=== PATIENT | female | born 1960 | race Caucasian/White ===

== ENCOUNTER 2020-02-21 16:57 | Inpatient (IN) | payer OTHER ==
[~2020-02-21 16:57] MED LIST: HYDROmorphone 0.5 MG/0.5 ML SYRINGE IVP ONE; fentaNYL (PF) 50 MCG/ML 2 ML AMP IVP ONE
[2020-02-21] MEDS ORDERED: KETOROLAC 15 MG/ML 1 ML VIAL IVP STA (17:21)
[2020-02-21] MEDS ORDERED: SODIUM CHLORIDE 0.9% 1,000 ML IV STA (17:22)
--- NOTE | 2020-02-21 17:39 | ED ---
General Adult HPI <Keyon Chandra - Last Filed: 02/21/20 19:01> - General Source: patient Mode of arrival: ambulatory Limitations: no limitations <Rosas Bonilla - Last Filed: 02/21/20 19:03> - General Chief complaint: Abdominal Pain Stated complaint: Pelvic Pain Time Seen by Provider: 02/21/20 17:14 - History of Present Illness Initial comments: 59-year-old female with a past medical history of hysterectomy presents to the emergency room for chief quit of right lower quadrant abdominal pain. Patient reports this has been constant for 5 days now. Patient describes it as a sharp pain. Patient states it feels somewhat better when she lies flat. States walking makes this worse. Patient denies fevers but does admit to feeling sweaty at night. She denies nausea vomiting diarrhea. Denies dysuria.Patient has no other complaints at this time including shortness of breath, chest pain, nausea or vomiting, headache, or visual changes. (Rosas Bonilla) - Related Data Home Medications Medication Instructions Recorded Confirmed Multivitamins, Thera [Multivitamin 1 tab PO HS 02/21/20 02/21/20 (formulary)] Allergies Allergy/AdvReac Type Severity Reaction Status Date / Time No Known Allergies Allergy Verified 02/21/20 18:36 Review of Systems ROS Other: All systems not noted in ROS Statement are negative. <Keyon Chandra - Last Filed: 02/21/20 19:01> ROS Other: All systems not noted in ROS Statement are negative. <Rosas Bonilla - Last Filed: 02/21/20 19:03> ROS Statement: Those systems with pertinent positive or pertinent negative responses have been documented in the HPI. Past Medical History Past Medical History: No Reported History History of Any Multi-Drug Resistant Organisms: None Reported Past Surgical History: Hysterectomy Past Psychological History: No Psychological Hx Reported Smoking Status: Never smoker Past Alcohol Use History: Occasional Past Drug Use History: None Reported <Rosas Bonilla - Last Filed: 02/21/20 19:03> General Exam Limitations: no limitations General appearance: alert, in no apparent distress Head exam: Present: atraumatic, normocephalic, normal inspection Eye exam: Present: normal appearance ENT exam: Present: normal exam, mucous membranes moist Neck exam: Present: normal inspection, full ROM. Absent: tenderness, meningismus, lymphadenopathy Respiratory exam: Present: normal lung sounds bilaterally. Absent: respiratory distress, wheezes, rales, rhonchi, stridor Cardiovascular Exam: Present: regular rate, normal rhythm, normal heart sounds. Absent: systolic murmur, diastolic murmur, rubs, gallop, clicks GI/Abdominal exam: Present: soft, tenderness (Right lower quadrant tenderness), normal bowel sounds. Absent: distended, guarding, rebound, rigid <Rosas Bonilla - Last Filed: 02/21/20 19:03> Course Vital Signs 02/21/20 17:08 Temperature 98.5 F Pulse Rate 80 Respiratory 16 Rate Blood Pressure 144/78 O2 Sat by Pulse 98 Oximetry Medical Decision Making - Lab Data Result diagrams: 02/21/20 17:42 02/21/20 17:42 <Keyon Chandra - Last Filed: 02/21/20 19:01> - Lab Data Result diagrams: 02/21/20 17:42 02/21/20 17:42 <Rosas Bonilla - Last Filed: 02/21/20 19:03> - Medical Decision Making patient reevaluated and reexamined by myself, Dr. Chandra. Patient resting comfortably in bed. Abdomen soft with moderate tenderness right lower quadrant. I agree with PA findings. This includes diagnostic interpretation and treatment plan. CT results reviewed. Labs reviewed. Case discussed with Dr. Eden, who will admit For hospital call. He recommends nothing by mouth and IV antibiotics. (Keyon Chandra) Vitals are stable. Mild acidosis with a left shift. CMP unremarkable. Urinalysis is negative. CT abdomen and pelvis shows a 12 mm dilated appendix with surrounding mild inflammatory changes consistent with acute appendicitis. However there is also irregular wall thickening and mucosal enhancement of the cecum per which malignancy cannot be excluded. Appendicitis AB Conn current versus secondary to cecal finding. No evidence of perforation or significant fluid collection. Patient does not have history of surgeries. No current surge on. Dr. Chandra spoke with Dr. Eden who accepts this admission. (Rosas Bonilla) - Lab Data Lab Results 02/21/20 02/21/20 02/21/20 Range/Units 17:42 17:42 17:42 WBC 11.0 H (3.8-10.6) k/uL RBC 4.94 (3.80-5.40) m/uL Hgb 14.0 (11.4-16.0) gm/dL Hct 42.1 (34.0-46.0) % MCV 85.2 (80.0-100.0) fL MCH 28.4 (25.0-35.0) pg MCHC 33.3 (31.0-37.0) g/dL RDW 13.0 (11.5-15.5) % Plt Count 455 H (150-450) k/uL MPV 6.9 Neutrophils % 71 % Lymphocytes % 21 % Monocytes % 3 % Eosinophils % 2 % Basophils % 2 % Neutrophils # 7.8 H (1.3-7.7) k/uL Lymphocytes # 2.3 (1.0-4.8) k/uL Monocytes # 0.4 (0-1.0) k/uL Eosinophils # 0.2 (0-0.7) k/uL Basophils # 0.2 (0-0.2) k/uL Sodium 140 (137-145) mmol/L Potassium 5.0 (3.5-5.1) mmol/L Chloride 103 (98-107) mmol/L Carbon Dioxide 27 (22-30) mmol/L Anion Gap 10 mmol/L BUN 12 (7-17) mg/dL Creatinine 0.67 (0.52-1.04) mg/dL Est GFR (CKD-EPI)AfAm >90 (>60 ml/min/1.73 sqM) Est GFR (CKD-EPI)NonAf >90 (>60 ml/min/1.73 sqM) Glucose 90 (74-99) mg/dL Plasma Lactic Acid Isaac (0.7-2.0) mmol/L Calcium 9.9 (8.4-10.2) mg/dL Total Bilirubin 0.7 (0.2-1.3) mg/dL AST 52 H (14-36) U/L ALT 49 H (4-34) U/L Alkaline Phosphatase 104 (38-126) U/L Total Protein 7.8 (6.3-8.2) g/dL Albumin 4.4 (3.5-5.0) g/dL Amylase 61 (30-110) U/L Lipase 44 (23-300) U/L Urine Color Light Yellow Urine Appearance Clear (Clear) Urine pH 6.5 (5.0-8.0) Ur Specific Spencer 1.007 (1.001-1.035) Urine Protein Negative (Negative) Urine Glucose (UA) Negative (Negative) Urine Ketones Negative (Negative) Urine Blood Negative (Negative) Urine Nitrite Negative (Negative) Urine Bilirubin Negative (Negative) Urine Urobilinogen <2.0 (<2.0) mg/dL Ur Leukocyte Esterase Negative (Negative) 02/21/20 Range/Units 17:42 WBC (3.8-10.6) k/uL RBC (3.80-5.40) m/uL Hgb (11.4-16.0) gm/dL Hct (34.0-46.0) % MCV (80.0-100.0) fL MCH (25.0-35.0) pg MCHC (31.0-37.0) g/dL RDW (11.5-15.5) % Plt Count (150-450) k/uL MPV Neutrophils % % Lymphocytes % % Monocytes % % Eosinophils % % Basophils % % Neutrophils # (1.3-7.7) k/uL Lymphocytes # (1.0-4.8) k/uL Monocytes # (0-1.0) k/uL Eosinophils # (0-0.7) k/uL Basophils # (0-0.2) k/uL Sodium (137-145) mmol/L Potassium (3.5-5.1) mmol/L Chloride (98-107) mmol/L Carbon Dioxide (22-30) mmol/L Anion Gap mmol/L BUN (7-17) mg/dL Creatinine (0.52-1.04) mg/dL Est GFR (CKD-EPI)AfAm (>60 ml/min/1.73 sqM) Est GFR (CKD-EPI)NonAf (>60 ml/min/1.73 sqM) Glucose (74-99) mg/dL Plasma Lactic Acid Isaac 1.0 (0.7-2.0) mmol/L Calcium (8.4-10.2) mg/dL Total Bilirubin (0.2-1.3) mg/dL AST (14-36) U/L ALT (4-34) U/L Alkaline Phosphatase (38-126) U/L Total Protein (6.3-8.2) g/dL Albumin (3.5-5.0) g/dL Amylase (30-110) U/L Lipase (23-300) U/L Urine Color Urine Appearance (Clear) Urine pH (5.0-8.0) Ur Specific Spencer (1.001-1.035) Urine Protein (Negative) Urine Glucose (UA) (Negative) Urine Ketones (Negative) Urine Blood (Negative) Urine Nitrite (Negative) Urine Bilirubin (Negative) Urine Urobilinogen (<2.0) mg/dL Ur Leukocyte Esterase (Negative) Disposition <Keyon Chandra - Last Filed: 02/21/20 19:01> Is patient prescribed a controlled substance at d/c from ED?: No Time of Disposition: 18:57 <Rosas Bonilla - Last Filed: 02/21/20 19:03> Clinical Impression: Appendicitis Disposition: ADMITTED IP TO THIS HOSP Referrals: None,Stated [Primary Care Provider] - 1-2 days
[2020-02-21 18:01] LABS: Appearance,Urine Clear (Clear); Basophils # (A) 0.2 k/uL (0-0.2); Basophils % (A) 2 %; Bilirubin,Urine Negative (Negative); Blood,Urine Negative (Negative); Color,Urine Light Yellow; Eosinophils # (A) 0.2 k/uL (0-0.7); Eosinophils % (A) 2 %; Glucose,Urine (UA) Negative (Negative); HCT 42.1 % (34.0-46.0); Ketones,Urine Negative (Negative); Leukocyte Esterase,Urine Negative (Negative); Lymphocytes # (A) 2.3 k/uL (1.0-4.8); Lymphocytes % (A) 21 %; MCH 28.4 pg (25.0-35.0); MCHC 33.3 g/dL (31.0-37.0); MCV 85.2 fL (80.0-100.0); Mean Platelet Volume 6.9; Monocytes # (A) 0.4 k/uL (0-1.0); Monocytes % (A) 3 %; Neutrophils # (A) 7.8 k/uL (1.3-7.7); Neutrophils % (A) 71 %; Nitrite,Urine Negative (Negative); PH, Urine 6.5 (5.0-8.0); Platelet Count 455 k/uL (150-450); Protein,Urine Negative (Negative); RBC 4.94 m/uL (3.80-5.40); Specific Gravity,Urine 1.007 (1.001-1.035); Urobilinogen,Urine <2.0 mg/dL (<2.0)
[2020-02-21 18:14] LABS: ALT 49 U/L (4-34); AST 52 U/L (14-36); African American GFR (CKD) >90 (>60 ml/min/1.73 sqM); Albumin 4.4 g/dL (3.5-5.0); Alkaline Phosphatase 104 U/L (38-126); Amylase 61 U/L (30-110); Anion Gap 10 mmol/L; Blood Urea Nitrogen 12 mg/dL (7-17); Calcium 9.9 mg/dL (8.4-10.2); Carbon Dioxide 27 mmol/L (22-30); Chloride 103 mmol/L (98-107); Glucose 90 mg/dL (74-99); Lipase 44 U/L (23-300); Non-African American GFR(CKD) >90 (>60 ml/min/1.73 sqM); Sodium 140 mmol/L (137-145); Total Bilirubin 0.7 mg/dL (0.2-1.3); Total Protein 7.8 g/dL (6.3-8.2)
--- NOTE | 2020-02-21 18:39 | CT ---
EXAMINATION TYPE: CT abdomen pelvis w con DATE OF EXAM: 02/21/2020 COMPARISON: None available. HISTORY: RLQ pain with constipation and fever. CT DLP: 1472.7 mGycm Automated exposure control for dose reduction was used. TECHNIQUE: Helical acquisition of images was performed from the lung bases through the pelvis. CONTRAST: Performed without Oral Contrast and with IV Contrast, patient injected with 100 mL of Isovue 300. FINDINGS: LUNG BASES: No significant abnormality is appreciated. LIVER/GB: No significant abnormality is appreciated. PANCREAS: No significant abnormality is seen. SPLEEN: No significant abnormality is seen. ADRENALS: No significant abnormality is seen. KIDNEYS: No significant abnormality is seen. FREE AIR: No free air is visualized. RETROPERITONEAL ADENOPATHY: None visualized REPRODUCTIVE ORGANS: No significant abnormality is seen URINARY BLADDER: Decompressed, otherwise unremarkable. PELVIC ADENOPATHY: None visualized. OSSEOUS STRUCTURES: No significant abnormality is seen. BOWEL: 12 mm dilated appendix with surrounding mild fat stranding. Also diffuse irregular wall thick ening and mucosal enhancement of the cecum. No significant fluid collection or free air. No bowel obs truction OTHER: None. IMPRESSION: 12 mm dilated appendix with surrounding mild inflammatory changes, consistent with acute appendicitis . However there is also irregular wall thickening and mucosal enhancement of the cecum, for which mal ignancy cannot be excluded. Appendicitis may be concurrent versus secondary to cecal finding. No evidence of perforation or significant fluid collection. Findings were reported to CAMERON Bonilla by me at the time of dictation.
[2020-02-21] MEDS ORDERED: NALOXONE 0.4 MG/ML 1 ML VIAL IV PRN ×2 (19:02→22:57)
[2020-02-21] MEDS ORDERED: HYDROmorphone 0.5 MG/0.5 ML SYRINGE IVP PRN (19:02)
[2020-02-21] MEDS ORDERED: ONDANSETRON 4 MG/2 ML VIAL IVP PRN ×2 (19:02→22:57)
[2020-02-21] MEDS ORDERED: AMPICILLIN-SULBACTAM 1.5 GM in SODIUM CHLORIDE 0.9% 50 ML IVPB ONE (19:20)
[2020-02-21] MEDS ORDERED: LACTATED RINGERS 1,000 ML IV ONE ×2 (21:09→22:57)
[2020-02-21] MEDS ORDERED: NEOSTIGMINE 1 MG/ML 10 ML VIAL ONE (21:43)
[2020-02-21] MEDS ORDERED: LIDOCAINE 1% INJ 10MG/ML (20 ML MDV) ONE (21:43)
[2020-02-21] MEDS ORDERED: fentaNYL (PF) 50 MCG/ML 2 ML AMP ONE (21:43)
[2020-02-21] MEDS ORDERED: GLYCOPYRROLATE 0.2 MG/ML 2 ML VIAL ONE (21:43)
[2020-02-21] MEDS ORDERED: SUCCINYLCHOLINE CHLORIDE 100 MG/5 ML SYR IV ONE (21:43)
[2020-02-21] MEDS ORDERED: PROPOFOL 10 MG/ML 20 ML VIAL IV ONE (21:43)
[2020-02-21] MEDS ORDERED: MIDAZOLAM 2 MG/2 ML VIAL ONE (21:43)
[2020-02-21] MEDS ORDERED: HYDROmorphone (PF) 1 MG/ML ONE (21:43)
[2020-02-21] MEDS ORDERED: ROCURONIUM 10 MG/ML (10 ML VIAL) IV ONE (21:43)
[2020-02-21] MEDS ORDERED: ONDANSETRON 4 MG/2 ML VIAL ONE (21:43)
[2020-02-21] MEDS ORDERED: BUPIVACAINE (PF) 0.25% 30 ML VIAL SQ ONE (21:45)
--- NOTE | 2020-02-21 21:47 | P.GSHP ---
History of Present Illness H&P Date: 02/21/20 Chief Complaint: Right lower quadrant pain This is a 59-year-old female who presents emergency room with a 5 day history of right lower quadrant pain. Patient went CAT scan which shows evidence of acute appendicitis. Past Medical History Past Medical History: No Reported History History of Any Multi-Drug Resistant Organisms: None Reported Past Surgical History: Hysterectomy Past Psychological History: No Psychological Hx Reported Smoking Status: Never smoker Past Alcohol Use History: Occasional Past Drug Use History: None Reported Medications and Allergies Home Medications Medication Instructions Recorded Confirmed Type Multivitamins, Thera [Multivitamin 1 tab PO HS 02/21/20 02/21/20 History (formulary)] Allergies Allergy/AdvReac Type Severity Reaction Status Date / Time No Known Allergies Allergy Verified 02/21/20 18:36 Surgical - Exam Vital Signs Temp Pulse Resp BP Pulse Ox 98.5 F 80 16 144/78 98 02/21/20 17:08 02/21/20 17:08 02/21/20 17:08 02/21/20 17:08 02/21/20 17:08 - General well developed, well nourished, no distress - Eyes PERRL - ENT normal pinna - Neck no masses - Respiratory normal expansion - Cardiovascular Rhythm: regular - Abdomen Right lower quadrant pain Abdomen: soft Results - Labs 02/21/20 17:42 02/21/20 17:42 Abnormal Lab Results - Last 24 Hours (Table) 02/21/20 02/21/20 Range/Units 17:42 17:42 WBC 11.0 H (3.8-10.6) k/uL Plt Count 455 H (150-450) k/uL Neutrophils # 7.8 H (1.3-7.7) k/uL AST 52 H (14-36) U/L ALT 49 H (4-34) U/L Diabetes panel 02/21/20 Range/Units 17:42 Sodium 140 (137-145) mmol/L Potassium 5.0 (3.5-5.1) mmol/L Chloride 103 (98-107) mmol/L Carbon Dioxide 27 (22-30) mmol/L BUN 12 (7-17) mg/dL Creatinine 0.67 (0.52-1.04) mg/dL Glucose 90 (74-99) mg/dL Calcium 9.9 (8.4-10.2) mg/dL AST 52 H (14-36) U/L ALT 49 H (4-34) U/L Alkaline Phosphatase 104 (38-126) U/L Total Protein 7.8 (6.3-8.2) g/dL Albumin 4.4 (3.5-5.0) g/dL Calcium panel 02/21/20 Range/Units 17:42 Calcium 9.9 (8.4-10.2) mg/dL Albumin 4.4 (3.5-5.0) g/dL Pituitary panel 02/21/20 Range/Units 17:42 Sodium 140 (137-145) mmol/L Potassium 5.0 (3.5-5.1) mmol/L Chloride 103 (98-107) mmol/L Carbon Dioxide 27 (22-30) mmol/L BUN 12 (7-17) mg/dL Creatinine 0.67 (0.52-1.04) mg/dL Glucose 90 (74-99) mg/dL Calcium 9.9 (8.4-10.2) mg/dL Adrenal panel 02/21/20 Range/Units 17:42 Sodium 140 (137-145) mmol/L Potassium 5.0 (3.5-5.1) mmol/L Chloride 103 (98-107) mmol/L Carbon Dioxide 27 (22-30) mmol/L BUN 12 (7-17) mg/dL Creatinine 0.67 (0.52-1.04) mg/dL Glucose 90 (74-99) mg/dL Calcium 9.9 (8.4-10.2) mg/dL Total Bilirubin 0.7 (0.2-1.3) mg/dL AST 52 H (14-36) U/L ALT 49 H (4-34) U/L Alkaline Phosphatase 104 (38-126) U/L Total Protein 7.8 (6.3-8.2) g/dL Albumin 4.4 (3.5-5.0) g/dL Assessment and Plan Plan: Acute appendicitis. Patient undergo laparoscopic appendectomy
[2020-02-21] MEDS ORDERED: METOCLOPRAMIDE 5 MG/ML 2 ML VIAL IVP PRN (22:57)
[2020-02-21] MEDS ORDERED: ONDANSETRON 4 MG/2 ML VIAL IVP ONE (23:10)
[2020-02-21] MEDS ORDERED: HYDROmorphone 0.5 MG/0.5 ML SYRINGE IVP ONE ×5 (23:12→23:50)
[2020-02-21] MEDS ORDERED: SODIUM CHLORIDE 0.9% 1,000 ML IV ONE (23:38)
[2020-02-22] MEDS ORDERED: fentaNYL (PF) 50 MCG/ML 2 ML AMP IVP ONE (00:05)
[2020-02-22] MEDS ORDERED: KETOROLAC 15 MG/ML 1 ML VIAL IVP ONE ×3 (00:30→01:17)
[2020-02-22] MEDS: HYDROmorphone 1 MG/ML 1 ML SYRINGE IVP PRN ×4 (01:59→20:56)
[2020-02-22] MEDS: SODIUM CHLORIDE 0.9% 1,000 ML IV SCH ×4 (02:00→15:34)
[2020-02-22] MEDS: AMPICILLIN-SULBACTAM 1.5 GM in SODIUM CHLORIDE 0.9% 50 ML IVPB SCH ×4 (02:12→18:09)
[2020-02-22 06:54] LABS: Basophils % (A) 0 %; Eosinophils % (A) 0 %; HCT 35.8 % (34.0-46.0); HGB 11.4 gm/dL (11.4-16.0); Lymphocytes # (A) 0.9 k/uL (1.0-4.8); Lymphocytes % (A) 9 %; MCH 27.8 pg (25.0-35.0); MCHC 31.8 g/dL (31.0-37.0); MCV 87.3 fL (80.0-100.0); Mean Platelet Volume 6.5; Monocytes # (A) 0.3 k/uL (0-1.0); Monocytes % (A) 3 %; Neutrophils # (A) 8.3 k/uL (1.3-7.7); Neutrophils % (A) 87 %; Platelet Count 343 k/uL (150-450); RBC 4.11 m/uL (3.80-5.40); RDW 13.2 % (11.5-15.5); WBC 9.5 k/uL (3.8-10.6)
[2020-02-22 07:01] LABS: African American GFR (CKD) >90 (>60 ml/min/1.73 sqM); Albumin 3.3 g/dL (3.5-5.0); Anion Gap 4 mmol/L; Calcium 8.5 mg/dL (8.4-10.2); Carbon Dioxide 28 mmol/L (22-30); Chloride 106 mmol/L (98-107); Glucose 129 mg/dL (74-99); Non-African American GFR(CKD) >90 (>60 ml/min/1.73 sqM); Sodium 138 mmol/L (137-145); Total Bilirubin 0.6 mg/dL (0.2-1.3); Total Protein 6.2 g/dL (6.3-8.2)
[2020-02-22 07:04] LABS: ALT 44 U/L (4-34); AST 43 U/L (14-36); Alkaline Phosphatase 67 U/L (38-126); Blood Urea Nitrogen 11 mg/dL (7-17); Potassium 5.1 mmol/L (3.5-5.1)
--- NOTE | 2020-02-22 08:48 | P.OP ---
Date of Procedure: 02/21/20 Preoperative Diagnosis: Acute appendicitis Postoperative Diagnosis: Right colon mass Procedure(s) Performed: Diagnostic laparoscopy Right colectomy Anesthesia: YAHIR Surgeon: Adolfo Eden Estimated Blood Loss (ml): 5 Pathology: none sent Condition: stable Disposition: PACU Description of Procedure: HThe patient's placed on the operating table in the supine position. The patient received general anesthesia. The abdomen was prepped and draped in the usual sterile fashion. The skin was anesthetized 1% local Xylocaine at the trocar sites. Using an 11 blade the skin was incised at the umbilicus. The umbilicus was grasped with a Marcelle clamp and then a Veress needle was placed into the peritoneal cavity. Position of the Veress needle was confirmed with positive drop test. After adequate insufflation a 5 mm trocar was placed into the peritoneal cavity. The abdomen was further insufflated. And then the laparoscope was placed in the peritoneal cavity. Next a 5 mm trocar was placed in the midline suprapubic position. And then a 10 mm trocar was placed in the midline epigastric position. The patient was rotated with the right side up and in Trendelenburg. The patient appeared to have a mass at the cecum. The small bowel was adherent to the mass. It was unclear if this was due to appendicitis or a tumor. This point the procedure was converted to an open procedure. The trochars withdrawn. The skin was incised in the midline. And was entered. The Bookwalter tract with wound. The patient had a mass in the cecum and small bowel. The terminal ileum was then transected with the OSMANY stapler. And the mesentery the terminal ileum was divided with the Enseal device. The right colon was mobilized by dividing the white line of Toldt and the colon was mobilized medially. The distal ascending colon was transected with the OSMANY stapler. And then the mesentery the bowel was divided with the incidental device. The specimen sent to pathology. The bowel was then anastomosed using the OSMANY and TA stapler in a [id number] functional end-to-end staple anastomosis. A 3-0 GI silk sutures using a crotch stitch. The abdomen was areas no bleeding seen. The fascia was closed with looped #1 PDS suture. Skin was closed dameon. Patient top she will was sent to recovery room stable condition.
[2020-02-22] MEDS ORDERED: ENOXAPARIN 40 MG/0.4 ML SYRINGE SQ SCH (09:00)
[2020-02-22] MEDS: HEPARIN SODIUM,PORCINE 5,000 UNIT/ML 1 ML VIAL SQ SCH ×2 (09:50→20:54)
[2020-02-22] MEDS: ACETAMINOPHEN IV (For NPO) 1,000 MG in EMPTY BAG 1 BAG IVPB SCH ×3 (10:47→20:54)
--- NOTE | 2020-02-22 12:44 | P.PN ---
Subjective Progress Note Date: 02/22/20 CHIEF COMPLAINT: Abdominal pain HISTORY OF PRESENT ILLNESS: Patient is postop day #1 status post diagnostic laparoscopy and right colectomy for right colon mass. Patient is reporting abdominal pain. She rates her pain 8 out of 10. She reports that her pain medication is not lasting long enough. She denies any nausea or vomiting. She denies passing gas. WBC is 9.5 hemoglobin 11.4 PHYSICAL EXAM: VITAL SIGNS: Reviewed. GENERAL: Well-developed in no acute distress. HEENT: No sclera icterus. Extraocular movements grossly intact. Moist buccal mucosa. Head is atraumatic, normocephalic. ABDOMEN: Soft. Nondistended. Incisional tenderness. Incision dressing small amounts of blood noted. NEUROLOGIC: Alert and oriented. Cranial nerves II through XII grossly intact. ASSESSMENT: 1. Right colon mass status post diagnostic laparoscopy and right colectomy PLAN: -Keep patient nothing by mouth -Increased IV fluids 125 mL per hour normal saline -IV Tylenol and IV Toradol added to help with pain control. Continue with the Dilaudid as needed -Continue IV Unasyn -Await pathology results -Encourage incentive spirometer use -Encourage patient to ambulate -GI prophylaxis Protonix and DVT prophylaxis subcu heparin Physician Courtroom Deputy note has been reviewed by physician. Signing provider agrees with the documented findings, assessment, and plan of care. Objective - Vital Signs Vital signs: Vital Signs Temp 97.5 F L 02/22/20 04:34 Pulse 86 02/22/20 04:34 Resp 18 02/22/20 04:34 BP 134/81 02/22/20 04:34 Pulse Ox 97 02/22/20 04:34 Intake & Output 02/21/20 02/22/20 02/22/20 18:59 06:59 18:59 Intake Total 800 1660 Output Total 120 Balance 800 1540 Weight 90.718 kg 90.718 kg Intake: IV 800 200 Intake, IV Titration 1060 Amount Ampicillin-Sulbactam 1.5 100 gm In Sodium Chloride 0.9 % 50 ml @ 100 mls/hr IVPB Q6HR [facility] Rx#:[id number] Sodium Chloride 0.9% 1, 960 000 ml @ 120 mls/hr IV . Q8H20M [facility] Rx#:[id number] Oral 400 Output: Urine 70 Estimated Blood Loss 50 Other: Voiding Method Indwelling Catheter Indwelling Catheter - Labs CBC & Chem 7: 02/22/20 06:41 02/22/20 06:41 Labs: Abnormal Lab Results - Last 24 Hours (Table) 02/21/20 02/21/20 02/22/20 Range/Units 17:42 17:42 06:41 WBC 11.0 H (3.8-10.6) k/uL Plt Count 455 H (150-450) k/uL Neutrophils # 7.8 H 8.3 H (1.3-7.7) k/uL Lymphocytes # 0.9 L (1.0-4.8) k/uL Glucose (74-99) mg/dL AST 52 H (14-36) U/L ALT 49 H (4-34) U/L Total Protein (6.3-8.2) g/dL Albumin (3.5-5.0) g/dL 02/22/20 Range/Units 06:41 WBC (3.8-10.6) k/uL Plt Count (150-450) k/uL Neutrophils # (1.3-7.7) k/uL Lymphocytes # (1.0-4.8) k/uL Glucose 129 H (74-99) mg/dL AST 43 H (14-36) U/L ALT 44 H (4-34) U/L Total Protein 6.2 L (6.3-8.2) g/dL Albumin 3.3 L (3.5-5.0) g/dL
[2020-02-22] MEDS: KETOROLAC 15 MG/ML 1 ML VIAL IVP SCH ×2 (13:18→17:54)
[2020-02-22] MEDS: PANTOPRAZOLE 40 MG/10 ML VIAL IVP SCH (13:19)
--- NOTE | 2020-02-22 13:41 | P.CONS ---
History of Present Illness - Reason for Consult Appendicitis - History of Present Illness Pleasant 59-year-old the female came in with right lower quadrant abdominal pain initially believed to have appendicitis because of which she initially laparoscopy was attempted and patient is found to have masslike lesion which is inflamed which appeared to be chronically inflamed around the cecal area because of which it was subsequently converted to laparotomy and the patient had a laparotomy with the removal of the appendix and cecum, patient had the colectomy as well partial. Patient was really doesn't have a colostomy at this time. Patient is still having some pain. Patient denied any fever chills nausea vomiting patient is passing gas. Review of Systems REVIEW OF SYSTEMS: CONSTITUTIONAL: No fever, no malaise, no fatigue. HEENT: No recent visual problems or hearing problems. Denied any sore throat. CARDIOVASCULAR: No chest pain, orthopnea, PND, no palpitations, no syncope. PULMONARY: No shortness of breath, no cough, no hemoptysis. GASTROINTESTINAL: As mentioned in HPI NEUROLOGICAL: No headaches, no weakness, no numbness. HEMATOLOGICAL: Denies any bleeding or petechiae. GENITOURINARY: Denies any burning micturition, frequency, or urgency. MUSCULOSKELETAL/RHEUMATOLOGICAL: Denies any joint pain, swelling, or any muscle pain. ENDOCRINE: Denies any polyuria or polydipsia. The rest of the 14-point review of systems is negative. Past Medical History Past Medical History: No Reported History History of Any Multi-Drug Resistant Organisms: None Reported Past Surgical History: Hysterectomy Past Anesthesia/Blood Transfusion Reactions: No Reported Reaction Past Psychological History: No Psychological Hx Reported Smoking Status: Never smoker Past Alcohol Use History: Occasional Past Drug Use History: None Reported - Past Family History Father Family Medical History: Prostate Disorder Additional Family Medical History / Comment(s): preastrate ca Mother Family Medical History: Hypertension Medications and Allergies Home Medications Medication Instructions Recorded Confirmed Type Multivitamins, Thera [Multivitamin 1 tab PO HS 02/21/20 02/21/20 History (formulary)] Allergies Allergy/AdvReac Type Severity Reaction Status Date / Time No Known Allergies Allergy Verified 02/21/20 18:36 Physical Exam Vitals: Vital Signs Temp Pulse Pulse Pulse Resp BP BP 02/22/20 04:34 97.5 F L 86 18 134/81 02/22/20 01:30 97.6 F 75 16 143/75 11/18/20 01:00 70 18 132/66 02/22/20 00:25 68 16 139/67 02/22/20 00:10 64 16 135/66 02/21/20 23:50 60 16 130/73 02/21/20 23:35 62 16 130/73 02/21/20 23:20 64 16 133/69 02/21/20 23:08 58 L 16 118/60 02/21/20 22:53 96.8 F L 63 16 141/76 02/21/20 21:04 77 16 158/75 02/21/20 19:13 99.2 F 76 16 153/90 02/21/20 17:08 98.5 F 80 16 144/78 Pulse Ox 02/22/20 04:34 97 02/22/20 01:30 97 02/22/20 01:00 96 02/22/20 00:25 98 02/22/20 00:10 96 02/21/20 23:50 96 02/21/20 23:35 99 02/21/20 23:20 95 02/21/20 23:08 98 02/21/20 22:53 97 02/21/20 21:04 97 02/21/20 19:13 100 02/21/20 17:08 98 Intake and Output 02/21/20 02/22/20 02/22/20 22:59 06:59 14:59 Intake Total 1660 Output Total 120 Balance -120 1660 Intake: IV 200 Intake, IV Titration 1060 Amount Ampicillin-Sulbactam 1.5 100 gm In Sodium Chloride 0.9 % 50 ml @ 100 mls/hr IVPB Q6HR [facility] Rx#:[id number] Sodium Chloride 0.9% 1, 960 000 ml @ 120 mls/hr IV . Q8H20[facility] Rx#:[id number] Oral 400 Output: Urine 70 Estimated Blood Loss 50 Other: Voiding Method Indwelling Catheter Indwelling Catheter Weight 90.718 kg 90.718 kg PHYSICAL EXAMINATION: GENERAL: The patient is alert and oriented x3, not in any acute distress. Well developed, well nourished. HEENT: Pupils are round and equally reacting to light. EOMI. No scleral icterus. No conjunctival pallor. Normocephalic, atraumatic. No pharyngeal erythema. No thyromegaly. CARDIOVASCULAR: S1 and S2 present. No murmurs, rubs, or gallops. PULMONARY: Chest is clear to auscultation, no wheezing or crackles. ABDOMEN: Soft, surgical site areas are clean. MUSCULOSKELETAL: No joint swelling or deformity. EXTREMITIES: No cyanosis, clubbing, or pedal edema. NEUROLOGICAL: Gross neurological examination did not reveal any focal deficits. SKIN: No rashes. Results CBC & Chem 7: 02/22/20 06:41 02/22/20 06:41 Labs: Abnormal Lab Results - Last 24 Hours (Table) 02/21/20 02/21/20 02/22/20 Range/Units 17:42 17:42 06:41 WBC 11.0 H (3.8-10.6) k/uL Plt Count 455 H (150-450) k/uL Neutrophils # 7.8 H 8.3 H (1.3-7.7) k/uL Lymphocytes # 0.9 L (1.0-4.8) k/uL Glucose (74-99) mg/dL AST 52 H (14-36) U/L ALT 49 H (4-34) U/L Total Protein (6.3-8.2) g/dL Albumin (3.5-5.0) g/dL 02/22/20 Range/Units 06:41 WBC (3.8-10.6) k/uL Plt Count (150-450) k/uL Neutrophils # (1.3-7.7) k/uL Lymphocytes # (1.0-4.8) k/uL Glucose 129 H (74-99) mg/dL AST 43 H (14-36) U/L ALT 44 H (4-34) U/L Total Protein 6.2 L (6.3-8.2) g/dL Albumin 3.3 L (3.5-5.0) g/dL Assessment and Plan Plan: -Cecal mass with possible acute or chronic inflammation: Patient is status post surgery and patient is status post colectomy and appendectomy. Pain management as per primary service. Patient is on due to prophylaxis with subcutaneous heparin patient is presently on Zosyn. -leukocytosis due to assessment #1 Abdomen mildly elevated liver enzymes mild nonspecific elevation of further intervention is necessary at this time.
[2020-02-23] MEDS: AMPICILLIN-SULBACTAM 1.5 GM in SODIUM CHLORIDE 0.9% 50 ML IVPB SCH ×5 (01:11→23:33)
[2020-02-23] MEDS: KETOROLAC 15 MG/ML 1 ML VIAL IVP SCH ×5 (01:11→23:33)
[2020-02-23] MEDS: SODIUM CHLORIDE 0.9% 1,000 ML IV SCH ×3 (01:12→21:11)
[2020-02-23] MEDS: HYDROmorphone 1 MG/ML 1 ML SYRINGE IVP PRN ×2 (04:59→21:05)
[2020-02-23] MEDS: ACETAMINOPHEN IV (For NPO) 1,000 MG in EMPTY BAG 1 BAG IVPB SCH (04:59)
[2020-02-23 05:39] VITALS: RESP 16
[2020-02-23] MEDS: PANTOPRAZOLE 40 MG/10 ML VIAL IVP SCH (08:14)
[2020-02-23] MEDS: HEPARIN SODIUM,PORCINE 5,000 UNIT/ML 1 ML VIAL SQ SCH ×2 (08:15→21:08)
[2020-02-23 09:44] LABS: African American GFR (CKD) 114.8 (60.0-200.0); Anion Gap 11.1 mmol/L (4.00-12.00); BUN/Creat Ratio 16.67 Ratio (12.00-20.00); Calcium 8.5 mg/dL (8.7-10.3); Carbon Dioxide 19.9 mmol/L (21.6-31.8); Non-African American GFR(CKD) 99.1 (60.0-200.0); Potassium 4.1 mmol/L (3.5-5.5)
--- NOTE | 2020-02-23 12:52 | P.PN ---
Subjective Progress Note Date: 02/23/20 CHIEF COMPLAINT: Abdominal pain HISTORY OF PRESENT ILLNESS: Patient is postop day #2 status post diagnostic laparoscopy and right colectomy for right colon mass. Patient is reporting decrease in abdominal pain. Denies any nausea or vomiting. She did pass gas. She's afebrile. PHYSICAL EXAM: VITAL SIGNS: Reviewed. GENERAL: Well-developed in no acute distress. HEENT: No sclera icterus. Extraocular movements grossly intact. Moist buccal mucosa. Head is atraumatic, normocephalic. ABDOMEN: Soft. Nondistended. Incisional tenderness. Incision dressing small amounts of blood noted. NEUROLOGIC: Alert and oriented. Cranial nerves II through XII grossly intact. ASSESSMENT: 1. Right colon mass status post diagnostic laparoscopy and right colectomy postop day #2 PLAN: -Start clear liquid diet -Discontinue Aguero catheter -Encourage patient to ambulate -Await pathology results -Continue antibiotics -Encourage incentive spirometer use -GI prophylaxis Protonix and DVT prophylaxis subcu heparin Physician Tufter note has been reviewed by physician. Signing provider agrees with the documented findings, assessment, and plan of care. Objective - Vital Signs Vital signs: Vital Signs Temp 98.3 F 02/23/20 05:38 Pulse 88 02/23/20 05:38 Resp 16 02/23/20 05:38 BP 130/80 02/23/20 05:38 Pulse Ox 94 L 02/23/20 05:38 Intake & Output 02/22/20 02/23/20 02/23/20 18:59 06:59 18:59 Output Total 700 500 Balance -700 -500 Output: Urine 700 500 Stool 0 Other: Voiding Method Indwelling Catheter Indwelling Catheter Indwelling Catheter - Labs CBC & Chem 7: 02/22/20 06:41 02/23/20 05:58 Labs: Abnormal Lab Results - Last 24 Hours (Table) 02/23/20 Range/Units 05:58 Chloride 110 H (96-109) mmol/L Carbon Dioxide 19.9 L (21.6-31.8) mmol/L Calcium 8.5 L (8.7-10.3) mg/dL
--- NOTE | 2020-02-23 15:46 | P.PN ---
Subjective Progress Note Date: 02/23/20 Pleasant 59-year-old the female came in with right lower quadrant abdominal pain initially believed to have appendicitis because of which she initially laparoscopy was attempted and patient is found to have masslike lesion which is inflamed which appeared to be chronically inflamed around the cecal area because of which it was subsequently converted to laparotomy and the patient had a laparotomy with the removal of the appendix and cecum, patient had the colectomy as well partial. Patient was really doesn't have a colostomy at this time. Patient is still having some pain. Patient denied any fever chills nausea vomiting patient is passing gas. 02/23/2020 Patient is seen and evaluated and follow-up postop day #2 of diagnostic laparoscopy and right colectomy of the right colon mass along with appendectomy and is being closely monitored. Patient is currently sitting up in the chair and reports to passing gas although no reports of bowel movements at this time. Indwelling Aguero catheter will be removed and patient will be advanced to clear liquid diet today. Will continue to follow along with surgery. Review of systems: Constitutional: No reports of fatigue, fever, or chills Cardiovascular: No reports of chest pain or palpitations Respiratory: No reports of shortness of breath or cough GI: No reports of nausea, vomiting, or diarrhea, reports reduced abdominal discomfort : No reports of dysuria or retention Neurovascular: No reports of weakness or numbness All medications have been reviewed Objective - Vital Signs Vital signs: Vital Signs Temp 98.3 F 02/23/20 14:13 Pulse 89 02/23/20 14:13 Resp 16 02/23/20 05:38 BP 139/79 02/23/20 14:13 Pulse Ox 96 02/23/20 14:13 Intake & Output 02/22/20 02/23/20 02/23/20 18:59 06:59 18:59 Intake Total 1100 Output Total 700 500 Balance -700 -500 1100 Intake: Intake, IV Titration 1100 Amount Ampicillin-Sulbactam 1.5 100 gm In Sodium Chloride 0.9 % 50 ml @ 100 mls/hr IVPB Q6HR VARSHA Rx#:[id number] Sodium Chloride 0.9% 1, 1000 000 ml @ 125 mls/hr IV . Q8H VARSHA Rx#:[id number] Output: Urine 700 500 Stool 0 Other: Voiding Method Indwelling Catheter Indwelling Catheter Indwelling Catheter - Exam GENERAL: The patient is alert and oriented x3, not in any acute distress. Well developed, well nourished. HEENT: Pupils are round and equally reacting to light. EOMI. No scleral icterus. No conjunctival pallor. Normocephalic, atraumatic. No pharyngeal erythema. No thyromegaly. CARDIOVASCULAR: S1 and S2 present. No murmurs, rubs, or gallops. PULMONARY: Chest is clear to auscultation, no wheezing or crackles. ABDOMEN: Soft, surgical site areas are clean. MUSCULOSKELETAL: No joint swelling or deformity. EXTREMITIES: No cyanosis, clubbing, or pedal edema. NEUROLOGICAL: Gross neurological examination did not reveal any focal deficits. SKIN: No rashes. - Labs CBC & Chem 7: 02/22/20 06:41 02/23/20 05:58 Labs: Abnormal Lab Results - Last 24 Hours (Table) 02/23/20 Range/Units 05:58 Chloride 110 H (96-109) mmol/L Carbon Dioxide 19.9 L (21.6-31.8) mmol/L Calcium 8.5 L (8.7-10.3) mg/dL Assessment and Plan Assessment: -Cecal mass with possible acute or chronic inflammation: Patient is status post surgery and patient is status post colectomy and appendectomy postop day #2. Pain management as per primary service. Patient is on DVT prophylaxis with subcutaneous heparin patient is presently on Zosyn. -leukocytosis due to assessment #1 -mildly elevated liver enzymes mild nonspecific elevation, no further intervention is necessary at this time. Plan: Diet being advanced to clear liquids today and will discontinue Aguero catheter and monitor for retention. Patient encouraged to increase ambulation as tolerated and also to continue using incentive spirometer at least 10 times every hour while awake. Will continue to follow along with surgery during hospitalization. Further recommendations to follow.
[2020-02-24] MEDS: AMPICILLIN-SULBACTAM 1.5 GM in SODIUM CHLORIDE 0.9% 50 ML IVPB SCH ×3 (05:39→18:22)
[2020-02-24] MEDS: KETOROLAC 15 MG/ML 1 ML VIAL IVP SCH ×3 (05:40→18:22)
[2020-02-24] MEDS: SODIUM CHLORIDE 0.9% 1,000 ML IV SCH ×3 (05:47→21:38)
[2020-02-24] MEDS: PANTOPRAZOLE 40 MG/10 ML VIAL IVP SCH (09:02)
[2020-02-24] MEDS: HEPARIN SODIUM,PORCINE 5,000 UNIT/ML 1 ML VIAL SQ SCH ×2 (09:02→21:34)
[2020-02-24] MEDS: HYDROmorphone 1 MG/ML 1 ML SYRINGE IVP PRN (09:03)
[2020-02-24] MEDS ORDERED: HYDROcodone/APAP 5-325MG 1 EACH TAB PO PRN (11:04)
--- NOTE | 2020-02-24 11:07 | P.PN ---
Subjective Progress Note Date: 02/24/20 CHIEF COMPLAINT: Abdominal pain HISTORY OF PRESENT ILLNESS: Patient is postop day #3 status post diagnostic laparoscopy and right colectomy for right colon mass. Patient reports her pain is controlled. Denies any nausea or vomiting. She did have a bowel movement. She's afebrile. She denies any difficulty urinating. PHYSICAL EXAM: VITAL SIGNS: Reviewed. GENERAL: Well-developed in no acute distress. HEENT: No sclera icterus. Extraocular movements grossly intact. Moist buccal mucosa. Head is atraumatic, normocephalic. ABDOMEN: Soft. Nondistended. Incisional tenderness. Incision dressing small amounts of blood noted. NEUROLOGIC: Alert and oriented. Cranial nerves II through XII grossly intact. ASSESSMENT: 1. Right colon mass status post diagnostic laparoscopy and right colectomy pos top day #3 PLAN: -Advance diet to a full liquid diet -Encourage patient to ambulate -Await pathology results -Continue antibiotics -Encourage incentive spirometer use -Anticipate discharge over the weekend -GI prophylaxis Protonix and DVT prophylaxis subcu heparin Physician [employer] Spr[employer] Booth Operator note has been reviewed by physician. Signing provider agrees with the documented findings, assessment, and plan of care. Objective - Vital Signs Vital signs: Vital Signs Temp 98.7 F 02/24/20 04:19 Pulse 87 02/24/20 04:19 Resp 16 02/24/20 04:19 BP 144/80 02/24/20 04:19 Pulse Ox 94 L 02/24/20 04:19 Intake & Output 02/23/20 02/24/20 02/24/20 18:59 06:59 18:59 Intake Total 1100 Output Total 420 Balance 680 Intake: Intake, IV Titration 1100 Amount Ampicillin-Sulbactam 1.5 100 gm In Sodium Chloride 0.9 % 50 ml @ 100 mls/hr IVPB Q6HR VARSHA Rx#:[id number] Sodium Chloride 0.9% 1, 1000 000 ml @ 125 mls/hr IV . Q8H VARSHA Rx#:[id number] Output: Urine 420 Other: Voiding Method Toilet Toilet # Voids 3 - Labs CBC & Chem 7: 02/22/20 06:41 02/23/20 05:58
--- NOTE | 2020-02-24 13:24 | P.PN ---
Subjective Progress Note Date: 02/24/20 Pleasant 59-year-old the female came in with right lower quadrant abdominal pain initially believed to have appendicitis because of which she initially laparoscopy was attempted and patient is found to have masslike lesion which is inflamed which appeared to be chronically inflamed around the cecal area because of which it was subsequently converted to laparotomy and the patient had a laparotomy with the removal of the appendix and cecum, patient had the colectomy as well partial. Patient was really doesn't have a colostomy at this time. Patient is still having some pain. Patient denied any fever chills nausea vomiting patient is passing gas. 02/23/2020 Patient is seen and evaluated and follow-up postop day #2 of diagnostic laparoscopy and right colectomy of the right colon mass along with appendectomy and is being closely monitored. Patient is currently sitting up in the chair and reports to passing gas although no reports of bowel movements at this time. Indwelling Aguero catheter will be removed and patient will be advanced to clear liquid diet today. Will continue to follow along with surgery. Review of systems: Constitutional: No reports of fatigue, fever, or chills Cardiovascular: No reports of chest pain or palpitations Respiratory: No reports of shortness of breath or cough GI: No reports of nausea, vomiting, or diarrhea, reports reduced abdominal discomfort : No reports of dysuria or retention Neurovascular: No reports of weakness or numbness All medications have been reviewed 02/24/2020 Patient is seen and evaluated in follow-up with no acute overnight issues. Patient is tolerating clear liquids and advancing to full liquids today. Patient reports passing gas and did have a bowel movement this morning. Patient is voiding with no difficulties in urination. Will continue to monitor and follow along with surgery. Review of systems: Constitutional: No reports of fatigue, fever, or chills Cardiovascular: No reports of chest pain or palpitations Respiratory: No reports of shortness of breath or cough GI: No reports of nausea, vomiting, or diarrhea : No reports of dysuria or retention Neurovascular: No reports of weakness or numbness All medications have been reviewed Objective - Vital Signs Vital signs: Vital Signs Temp 98.7 F 02/24/20 04:19 Pulse 87 02/24/20 04:19 Resp 16 02/24/20 04:19 BP 144/80 02/24/20 04:19 Pulse Ox 94 L 02/24/20 04:19 Intake & Output 02/23/20 02/24/20 02/24/20 18:59 06:59 18:59 Intake Total 1100 Output Total 420 Balance 680 Intake: Intake, IV Titration 1100 Amount Ampicillin-Sulbactam 1.5 100 gm In Sodium Chloride 0.9 % 50 ml @ 100 mls/hr IVPB Q6HR VARSHA Rx#:[id number] Sodium Chloride 0.9% 1, 1000 000 ml @ 125 mls/hr IV . Q8H VARSHA Rx#:[id number] Output: Urine 420 Other: Voiding Method Toilet Toilet # Voids 3 - Exam GENERAL: The patient is alert and oriented x3, not in any acute distress. Well developed, well nourished. HEENT: Pupils are round and equally reacting to light. EOMI. No scleral icterus. No conjunctival pallor. Normocephalic, atraumatic. No pharyngeal erythema. No thyromegaly. CARDIOVASCULAR: S1 and S2 present. No murmurs, rubs, or gallops. PULMONARY: Chest is clear to auscultation, no wheezing or crackles. ABDOMEN: Soft, obese, nontender. Positive bowel sounds are heard MUSCULOSKELETAL: No joint swelling or deformity. EXTREMITIES: No cyanosis, clubbing, or pedal edema. SCDs noted on bilateral lower extremities NEUROLOGICAL: Gross neurological examination did not reveal any focal deficits. SKIN: No rashes. - Labs CBC & Chem 7: 02/22/20 06:41 02/23/20 05:58 Assessment and Plan Assessment: -Cecal mass with possible acute or chronic inflammation: Patient is status post surgery and patient is status post colectomy and appendectomy postop day #3. Pain management as per primary service. Patient is on DVT prophylaxis with subcutaneous heparin patient is presently on Zosyn. -leukocytosis due to assessment #1, improved -mildly elevated liver enzymes mild nonspecific elevation, no further intervention is necessary at this time. Plan: Patient tolerated diet and being advanced to full liquids and states she is passing gas and had a bowel movement this morning. Aguero catheter was removed and patient is voiding with no difficulties or burning with urination. Patient encouraged to increase activity as tolerated and continue with incentive spirom eter as discussed previously. Will follow along with surgery during hospitalization. Further recommendations to follow.
[2020-02-25] MEDS: AMPICILLIN-SULBACTAM 1.5 GM in SODIUM CHLORIDE 0.9% 50 ML IVPB SCH ×3 (00:43→13:50)
[2020-02-25] MEDS: KETOROLAC 15 MG/ML 1 ML VIAL IVP SCH ×2 (01:05→06:23)
[2020-02-25] MEDS: SODIUM CHLORIDE 0.9% 1,000 ML IV SCH ×3 (06:24→13:52)
[2020-02-25] MEDS: PANTOPRAZOLE 40 MG/10 ML VIAL IVP SCH (08:24)
[2020-02-25] MEDS: HEPARIN SODIUM,PORCINE 5,000 UNIT/ML 1 ML VIAL SQ SCH (08:24)
[2020-02-25 09:33] LABS: African American GFR (CKD) 121.9 (60.0-200.0); Anion Gap 8.2 mmol/L (4.00-12.00); Calcium 8.5 mg/dL (8.7-10.3); Carbon Dioxide 21.8 mmol/L (21.6-31.8); Non-African American GFR(CKD) 105.2 (60.0-200.0)
[2020-02-25 12:44] VITALS: BP 186/80; PULSE 85; TEMP 97.6
--- NOTE | 2020-02-25 16:58 | P.DS ---
Providers Date of admission: 02/22/20 09:20 Expected date of discharge: 02/25/20 Attending physician: Adolfo Eden Consults: 02/21/20 22:57 Consult Physician Routine Consulting Provider: Ramón Johnston Consult Reason/Comments: Medical management Do you want consulting provider notified?: Yes Primary care physician: Stated None - Discharge Diagnosis(es) (1) Appendicitis Current Visit: Yes Status: Acute (2) Mass of colon Current Visit: Yes Status: Acute Hospital Course: CHIEF COMPLAINT: Appediceal mass HISTORY OF PRESENT ILLNESS: The patient is a 59-year-old female admitted for appendiceal mass. She is status post right hemicolectomy. "I want to go home." She is passing flatus and having bowel movements per discussion with her nurse. She is tolerating liquid diet. ROS: No reports of nausea and vomiting. No fevers or chills. No new chest pain. PHYSICAL EXAM: VITAL SIGNS: Reviewed CONSTITUTIONAL: Well developed and in no acute distress. EYES: Conjuctivae without sclera icterus. Extraocular movements grossly intact. HEAD, EARS, NOSE, THROAT: Moist buccal mucosa. Head is atraumatic, normocephalic. Hears conversational speech. No nasal drainage. NECK: Supple. RESPIRATORY: Non-labored respirations and equal bilateral excursions. CARDIOVASCULAR: Palpable 2+ radial pulses. ABDOMEN: No perionitis.. MUSCULOSKELETAL: No gross deformity of the lower extremities noted. No clubbing. No cyanosis. SKIN: Good skin turgor. Well perfused. NEUROLOGIC: Cranial nerves II through XII grossly intact. No focal or lateralizing signs. PSYCH: Appropriate affect. Alert and oriented to person, place and time. CLINICAL LABS: Reviewed. Sodium and potassium within normal limits. PATHOLOGY: Pending ASSESSMENT: 1. Appendiceal mass 2. Appendicitis PLAN: 1. She is clinically stable. 2. Follow-up as outpatient following discharge. Patient Condition at Discharge: Stable Plan - Discharge Summary Discharge Rx Participant: Yes New Discharge Prescriptions: New Docusate [Colace] 100 mg PO BID #30 capsule Hydrocodone/Acetaminophen [[place] 5-325] 1 tab PO Q4HR PRN 3 Days #18 tab PRN Reason: Pain No Action Multivitamins, Thera [Multivitamin (formulary)] 1 tab PO HS Discharge Medication List Multivitamins, Thera [Multivitamin (formulary)] 1 tab PO HS 02/21/20 [History] Docusate [Colace] 100 mg PO BID #30 capsule 02/24/20 [Rx] Hydrocodone/Acetaminophen [[place] 5-325] 1 tab PO Q4HR PRN 3 Days #18 tab 02/24/20 [Rx] Follow up Appointment(s)/Referral(s): [facility],Clinic [REFERRING] - 1-2 Days (Patient is followed by GISELLE Gomez)
--- NOTE | 2020-03-05 12:19 | CDI ---
Documentation Clarification Form Date: 03/05/20 From: Brittany Bowen Phone: If you have a question about this query, please contact [employer] Computer Consultant at [phone] between 8am and 5pm. Admit Date: 02/22/20 Discharge Date:02/25/20 Patient Name: Genet Contreras Visit Number: [id number] ATTENTION: The Clinical Documentation Specialists (CDI) and [facility] Coding Staff appreciate your assistance in clarifying documentation. Please respond to the clarification below the line at the bottom and electronically sign. The CDI & [facility] Coding staff will review the response and follow-up if needed. Please note: Queries are made part of the Legal Health Record. If you have any questions, please contact the author of this message via ITS. Dear Dr. 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 Documentation states: Mass of colon Patient history/risk factors: Hysterectomy history, family history of prostate cancer Clinical Indicators: Right lower quadrant pain Treatment: Right colectomy In your professional opinion, do you agree with the pathology report specifying the right colon mass as adenocarcinoma of the cecum? Yes No Other (please specify) Unable to determine Also, please clarify if appendicitis was? Ruled In Ruled Out Other (please specify) Unable to determine I agree with the pathology report of adenocarcinoma right colon. I'm unable to determine if appendicitis was present. MTDD
== END 2020-02-25 17:18 | disposition home or self-care (01) | DRG 330 ==
LOC: EC 16:57 → 6PED 18:55 → 5NMEDONC 02-22 01:00 → OBSVTOIN 02-22 09:20
PROVIDERS: ADMIT Surgery; ATTEND Surgery
PROC: 0DBF0ZZ Excision of Right Large Intestine, Open Approach (ICD-10-PCS; principal; 2020-02-21 20:00)
PROC: 0DBH0ZZ Excision of Cecum, Open Approach (ICD-10-PCS; principal; 2020-02-21 20:00)
DX: C18.2 Malignant neoplasm of ascending colon (principal); K35.80 Unspecified acute appendicitis; E87.2 Acidosis; R74.8 Abnormal levels of other serum enzymes; Z90.710 Acquired absence of both cervix and uterus; Z82.49 Family history of ischemic heart disease and other diseases of the circulatory system; Z53.31 Laparoscopic surgical procedure converted to open procedure
CPT/HCPCS: 36415; 74177; 80048; 80053; 81003; 82150; 83605; 83690; 85025; 88309; 96361; 96365; 96375; 99285

== ENCOUNTER → 2020-10-12 | Outpatient (CLI) | payer OTHER | END | disposition home or self-care (01) ==

== ENCOUNTER → 2020-11-09 | Outpatient (CLI) | payer OTHER ==
--- NOTE | 2020-11-09 14:02 | PE ---
EXAMINATION TYPE: PET CT fusion skull to thigh DATE OF EXAM: 11/09/2020 COMPARISON: Most recent whole body CT October 12, [address] abdomen and pelvis study February 21, 2020 HISTORY: Colon cancer diagnosed and treated surgically February 2020, recent abnormal CT TECHNIQUE: Following the intravenous administration of 10.39 mCi of F-18 FDG, whole body images are performed from the skull base to the midthigh. Images are reviewed on the computer in the coronal, a xial, and sagittal planes. Reconstructed rotating images are created on independent workstation and reviewed on the computer. A localization and attenuation correction CT is performed in conjunction with the PET scan. Blood glucose level equals 98 SCAN: Subsequent Scan FINDINGS: SKULL BASE AND NECK: No areas of abnormal hypermetabolic uptake. CHEST, MEDIASTINUM, AND HILAR REGION: No areas of abnormal hypermetabolic uptake. ABDOMEN AND PELVIS: Right sided hemicolectomy changes and surgical anastomosis there are axial image 156 redemonstrated. Corresponding to recent CT there is low dense lobulated intramesenteric nodule me asuring 2.0 x 1.1 cm that is ametabolic and was likely present on older study axial image 48 prior to surgery, stable from both studies in size and appearance. There is some nonspecific multifocal hypermetabolic bowel uptake. No areas of suspicious hypermetabol ic uptake. Normal excretion. OSSEOUS STRUCTURES: No areas of suspicious hypermetabolic uptake. OTHER CT: Nasal septum deviated to right of midline. Somewhat low lung volumes. Uterus is surgically absent. IMPRESSION: No suspicious hypermetabolic uptake to suggest neoplastic recurrence.
== END | disposition home or self-care (01) ==
LOC: RADPETMAIN 08:16
PROVIDERS: ATTEND Internal Medicine Hematology & Oncology
DX: C18.0 Malignant neoplasm of cecum (principal)
CPT/HCPCS: 78815; A9552

== ENCOUNTER → 2021-02-08 | Outpatient (CLI) | payer BC, OTHER ==
--- NOTE | 2021-02-08 12:24 | CT ---
EXAMINATION TYPE: CT abdomen pelvis w con DATE OF EXAM: 02/08/2021 COMPARISON: 11/09/2020, 10/12/2020 HISTORY: follow up colon, cecum cancer CT DLP: 1611 mGycm Automated exposure control for dose reduction was used. CONTRAST: CT scan of the abdomen pelvis is performed with IV Contrast, patient injected with 100 mL of Isovue 3 00. FINDINGS- LUNG BASES-motion artifact limits assessment. Subsegmental changes suggest scar or atelectasis. Subpl eural thickening and nodularity left lung base likely postinflammatory. LIVER/GB-suspected gallstones.. PANCREAS- No gross abnormality is seen. SPLEEN- No gross abnormality is seen. ADRENALS- No gross abnormality is seen. KIDNEYS/BLADDER-hypodensities within the kidneys are too small to characterize.. BOWEL-bowel gas pattern nonspecific. Thickening of the sigmoid colon wall is seen. Right hemicolectom y noted. LYMPH NODES- No greater than 1cm abdominal or pelvic lymph nodes areappreciated. OSSEOUS STRUCTURES- No significant abnormality is seen. OTHER- fat-containing periumbilical hernia. There is abnormal soft tissue seen in the right abdomen in the mesentery measuring 2.0 x 1 cm compatible with an area of adenopathy stable from prior exam. IMPRESSION- 1. Stable right-sided abdominal adenopathy within the mesentery measuring 2.2 x 1.1 cm. 2. Postsurgical changes. 3. Nonspecific segmental thickening of the wall the sigmoid colon could been the basis of a mild coli tis. Correlate with direct visualization to exclude other etiologies including mucosal
== END | disposition home or self-care (01) ==
LOC: RADCTMAIN 09:26
PROVIDERS: ATTEND Internal Medicine Hematology & Oncology
DX: C18.0 Malignant neoplasm of cecum (principal); R59.0 Localized enlarged lymph nodes
CPT/HCPCS: 74177; Q9967